=== PATIENT | male | born 1960 | race Caucasian/White ===

== ENCOUNTER → 2024-05-26 | Outpatient (CLI) | payer OTHER, SELFPAY ==
[2024-05-26 08:07] LABS: Collection Type, Urine Clean Catch
[2024-05-26 08:45] LABS: Basophils % (Auto) 0 % (0-2.5); Eosinophils # (Auto) 0.2 Thou/mm3 (0.0-0.5); Eosinophils % (Auto) 3 % (0-10); Hematocrit 41.8 % (41.0-53.0); Hemoglobin 14.6 g/dL (13.5-16.0); Immature Granulocytes % (Auto) 0 % (0-0); Immature Granulocytes Auto 0.01 Thou/mm3 (0.00-0.00); Lymphocytes # (Auto) 1.9 Thou/mm3 (1.0-4.8); Lymphocytes % (Auto) 27 % (10-50); Mean Corpuscular HGB Conc 34.9 g/dl (31.0-37.0); Mean Corpuscular Hemoglobin 28.6 pg (25.0-35.0); Mean Corpuscular Volume 82 fL (80-100); Monocytes # (Auto) 0.7 Thou/mm3 (0.0-0.8); Monocytes % (Auto) 11 % (0-12); Neutrophils % (Auto) 59 % (37-80); Nucleated Red Blood Cell % 0 /100 WBC (0); Platelet Count 254 Thou/mm3 (140-440); RDW Standard Deviation 38.9 fL (35.1-43.9); White Blood Count 6.8 Thou/mm3 (3.8-10.6)
[2024-05-26 08:51] LABS: Glucose Estimated Average 200 mg/dL (80-131); Hemoglobin A1C 8.6 % Hgb (4.8-6.0)
[2024-05-26 09:00] LABS: Bilirubin,Urine Negative (Negative); Blood,Urine Negative (Negative); Clarity,Urine Clear (Clear/Hazy); Color,Urine Lt-Yellow (Lt Yel-Yel); Glucose, Urine 4+ (Negative); Ketones,Urine 1+ (Negative); Leukocyte Esterase,Urine Negative (Negative); Nitrite,Urine Negative (Negative); PH,Urine 5.5 (5.0-7.0); Protein,Urine Negative (Neg - Trace); RBC,Urine < 1 /hpf (0-3); Specific Gravity,Urine 1.037 (1.001-1.035); Squamous Epithelial Cell,Urine < 1 /hpf (0-5); Urobilinogen,Urine Negative mg/dL (0.0-1.0); WBC,Urine 1 /hpf (0-5)
[2024-05-26 11:34] LABS: Alanine Aminotransferase 35 U/L (10-49); Albumin, Serum 5.1 gm/dL (3.4-4.8); Alkaline Phosphatase 50 U/L (46-116); Anion Gap 11 (7-16); Aspartate Amino Transferase 42 U/L (0-34); BUN/Creatinine Ratio 17 Ratio (12-20); Bilirubin,Total 0.7 mg/dL (0.3-1.2); Blood Urea Nitrogen 25 mg/dL (9-23); Calcium 10.7 mg/dL (8.3-10.6); Calcium (Corrected) 10.7 mg/dL (8.5-10.1); Carbon Dioxide 24.8 mMol/L (20.0-31.0); Cardiac Risk Estimate 3.1 RATIO (4.0-6.7); Chloride 105 mMol/L (98-107); Cholesterol 133 mg/dL (132-200); Creatinine (Component) 1.5 mg/dL (0.6-1.3); Globulin 2.6 gm/dL (2.3-3.5); Glucose 113 mg/dL (74-106); HDL Cholesterol 43 mg/dL (40-60); LDL Cholesterol,Calculated 53 mg/dL (0-130); Osmolality,Calculated 286 (275-295); Potassium 3.9 mMol/L (3.4-5.1); Sodium 141 mMol/L (136-145); Thyroid Stimulating Hormone 2.39 uIU/mL (0.55-4.78); Total Protein 7.7 gm/dL (5.7-8.2); Triglycerides 187 mg/dL (30-150); Uric Acid 5.3 mg/dL (3.7-9.2); eGFR 52 See Note
== END | disposition home or self-care (01) ==
LOC: COPL 06:58
PROVIDERS: PCP Family Medicine; Referring Provider Family Medicine; Visit Provider Family Medicine
DX: Z00.00 Encounter for general adult medical examination without abnormal findings (principal); E11.22 Type 2 diabetes mellitus with diabetic chronic kidney disease; E78.2 Mixed hyperlipidemia; E79.0 Hyperuricemia without signs of inflammatory arthritis and tophaceous disease; N18.32 Chronic kidney disease, stage 3b; I12.9 Hypertensive chronic kidney disease with stage 1 through stage 4 chronic kidney disease, or unspecified chronic kidney disease
CPT/HCPCS: 36415; 80053; 80061; 81001; 83036; 84443; 84550; 85025

== ENCOUNTER → 2025-02-09 | Outpatient (CLI) | payer OTHER, SELFPAY ==
[2025-02-09 08:39] LABS: Glucose Estimated Average 229 mg/dL (80-131); Hemoglobin A1C 9.6 % Hgb (4.8-6.0)
[2025-02-09 08:40] LABS: Alanine Aminotransferase 36 U/L (10-49); Albumin, Serum 5.1 gm/dL (3.4-4.8); Albumin/Globulin Ratio 1.9 (1.2-2.2); Alkaline Phosphatase 51 U/L (46-116); Anion Gap 13 (7-16); Aspartate Amino Transferase 44 U/L (0-34); BUN/Creatinine Ratio 16 Ratio (12-20); Bilirubin,Total 0.8 mg/dL (0.3-1.2); Blood Urea Nitrogen 25 mg/dL (9-23); Calcium 9.8 mg/dL (8.3-10.6); Calcium (Corrected) 9.8 mg/dL (8.5-10.1); Carbon Dioxide 26.3 mMol/L (20.0-31.0); Cardiac Risk Estimate 3.4 RATIO (4.0-6.7); Chloride 101 mMol/L (98-107); Cholesterol 124 mg/dL (132-200); Creatinine (Component) 1.6 mg/dL (0.6-1.3); Globulin 2.7 gm/dL (2.3-3.5); Glucose 182 mg/dL (74-106); HDL Cholesterol 37 mg/dL (40-60); LDL Cholesterol,Calculated 51 mg/dL (0-130); Osmolality,Calculated 288 (275-295); Potassium 3.7 mMol/L (3.4-5.1); Sodium 140 mMol/L (136-145); Total Protein 7.8 gm/dL (5.7-8.2); Triglycerides 182 mg/dL (30-150); eGFR 48 See Note
== END | disposition home or self-care (01) ==
LOC: COPL 07:43
PROVIDERS: PCP Family Medicine; Referring Provider Family Medicine; Visit Provider Family Medicine
DX: I12.9 Hypertensive chronic kidney disease with stage 1 through stage 4 chronic kidney disease, or unspecified chronic kidney disease (principal); E11.22 Type 2 diabetes mellitus with diabetic chronic kidney disease; N18.31 Chronic kidney disease, stage 3a; E78.2 Mixed hyperlipidemia
CPT/HCPCS: 36415; 80053; 80061; 83036